=== PATIENT | male | born 2000 | race Asian ===

== ENCOUNTER 2021-08-29 22:00 | Emergency (ER) | payer OTHER ==
[~2021-08-29] VITALS: Ht 175.3 cm; Wt 63.5 kg
[2021-08-30 01:00] VITALS: BP 126/70; TEMP 98.1
== END 2021-08-30 01:00 | disposition home or self-care (01) ==
LOC: ED 22:00
DX: S20.20XA Contusion of thorax, unspecified, initial encounter (principal); R31.29 Other microscopic hematuria; V49.40XA Driver injured in collision with unspecified motor vehicles in traffic accident, initial encounter; Y92.89 Other specified places as the place of occurrence of the external cause
CPT/HCPCS: 81000; 96372; 99283; J1885